=== PATIENT | female | born 1975 | race Caucasian/White ===

== ENCOUNTER 2019-01-20 08:39 | Outpatient (CLI) | payer OTHER ==
--- NOTE | 2019-01-20 20:07 | ULT ---
LEFT LOWER EXTREMITY VENOUS DOPPLER ULTRASOUND 01/20/19 Color duplex doppler ultrasonography of the deep veins of the left lower extremity was performed. No echogenic clot was seen. All deep veins were freely compressibility from groin to ankle. There was no rmal doppler response to augmentation maneuvers. No enlarged lymph nodes were seen in the inguinal re gion. IMPRESSION: No evidence of DVT or other adverse findings. POS: HOME
== END 2019-01-20 08:40 | disposition home or self-care (01) ==
LOC: BURULT 08:39
PROVIDERS: ATTEND Family Medicine
DX: R25.3 Fasciculation (principal)

== ENCOUNTER 2019-01-27 08:38 | Outpatient (CLI) | payer OTHER ==
--- NOTE | 2019-01-27 16:29 | ULT ---
BILATERAL RENAL ULTRASOUND: 01/27/2019 TECHNIQUE: Ultrasonography of the urinary tract was performed for evaluation of renal insufficiency. FINDINGS: Both kidneys appear normal in size and shape. There is no sign of mass, hydronephrosis, or insuffici ency of cortex in either. Cortical echogenicity is normal bilaterally. The right kidney measures 10 .7 x 4.5 x 4.7 cm, and the left kidney measures 10.2 x 6.3 x 4 cm. Views of the urinary bladder show no internal defects. Ureteral jets are noted. While the bladder w all measures slightly thick, at 6 mm, with a little more distention, it may be normal. At most, mild thickening would suggest the possibility of cystitis. IMPRESSION: 1. Normal appearing kidneys. 2. Slight thickening of the urinary bladder wall, which may or may not have significance. POS: HOME
== END 2019-01-27 08:39 | disposition home or self-care (01) ==
LOC: BURULT 08:38
PROVIDERS: ATTEND Family Medicine
DX: N28.9 Disorder of kidney and ureter, unspecified (principal); R93.41 Abnormal radiologic findings on diagnostic imaging of renal pelvis, ureter, or bladder
CPT/HCPCS: 76770

== ENCOUNTER 2020-04-11 07:44 | Outpatient (CLI) | payer OTHER ==
--- NOTE | 2020-04-11 15:57 | RAD ---
LUMBAR SPINE THREE VIEWS: 04/11/20 No fracture, disc space narrowing, or other findings to cause pain were encountered. The SI joints ap pear normal. All bony structures were normal for age. IMPRESSION: No acute finding. POS: HOME
[2020-04-11 19:01] LABS: ANA Symphony (Qualitative) Negative (Negative); ANA Symphony (Quantitative) 0.2 Ratio (< 0.7 Negative); CCP IgG Antibody 0.8 EliAU/mL (<7 Negative); EliA RAS New Method **** NEW METHOD ****; Rheumatoid Factor IgM Antibody 0.6 IU/mL (<3.5 Negative); dsDNA IgG Antibody Less than 0.5 IU/mL (<10 Negative)
== END 2020-04-11 07:45 | disposition home or self-care (01) ==
LOC: BURRAD 07:44
PROVIDERS: ATTEND Family Medicine
DX: M54.31 Sciatica, right side (principal); M25.40 Effusion, unspecified joint
CPT/HCPCS: 36415; 72100; 83520; 85652; 86038; 86140; 86200; 86225

== ENCOUNTER 2021-05-25 09:11 | Outpatient (CLI) | payer OTHER | END 2021-05-25 09:12 | disposition home or self-care (01) | LOC: BURRAD 09:11 | PROVIDERS: ATTEND Emergency Medicine | DX: M25.532 Pain in left wrist (principal) ==